=== PATIENT | male | born 1960 | race Caucasian/White ===

== ENCOUNTER 2018-10-14 14:36 | Day surgery (SDC) | payer OTHER ==
[~2018-10-14 14:36] MED LIST: CEFAZOLIN 2 GM/50 ML (PMX) 50 ML IVPB; DESFLURANE 15 MIN
[2018-10-14] MEDS ORDERED: LACTATED RINGER'S 1,000 ML IV ×2 (16:30)
[2018-10-14] MEDS ORDERED: BUPIVACAINE 0.5% (SDV) 30 ML INJ (16:44)
[2018-10-14] MEDS ORDERED: FENTAnyl 50 MCG/ML VIAL ×2 (16:44→17:33)
[2018-10-14] MEDS ORDERED: ONDANSETRON 4 MG INJ (16:44)
[2018-10-14] MEDS ORDERED: ROPIVACAINE 0.2% 20 ML VIAL (16:44)
[2018-10-14] MEDS ORDERED: PROPOFOL 20 ML (16:44)
[2018-10-14] MEDS ORDERED: MIDAZOLAM 1 MG/ML 2 ML INJ (16:44)
[2018-10-14] MEDS ORDERED: METOCLOPRAMIDE 10 MG INJ (16:45)
[2018-10-14] MEDS ORDERED: OXYCODONE/ACETAMINOPHEN (5/325) TAB PO ×2 (17:00)
[2018-10-14] MEDS ORDERED: MEPERIDINE 25 MG INJ IV (17:00)
[2018-10-14] MEDS ORDERED: HYDROmorphONE 1 MG/5 ML IV SYRINGE IV ×3 (17:00)
[2018-10-14] MEDS ORDERED: DIPHENHYDRAMINE 50 MG INJ IV (17:00)
[2018-10-14] MEDS ORDERED: hydrALAzine 20 MG INJ IV (17:00)
[2018-10-14] MEDS ORDERED: ONDANSETRON 4 MG INJ IV (17:00)
[2018-10-14] MEDS ORDERED: LABETALOL HCL 20MG INJ IV (17:00)
[2018-10-14] MEDS ORDERED: FENTAnyl 50 MCG/ML VIAL IV ×3 (17:00)
[2018-10-14] MEDS ORDERED: CEFAZOLIN 1 GM INJ (17:04)
[2018-10-14] MEDS ORDERED: EPHEDrine 25 MG/5 ML SYG (17:33)
[2018-10-14] MEDS ORDERED: KETOROLAC 30 MG INJ (17:34)
== END 2018-10-14 19:35 | disposition home or self-care (01) ==
LOC: SDS 14:36
DX: M72.0 Palmar fascial fibromatosis [Dupuytren] (principal); G56.01 Carpal tunnel syndrome, right upper limb; I10 Essential (primary) hypertension; E78.5 Hyperlipidemia, unspecified; E11.9 Type 2 diabetes mellitus without complications
CPT/HCPCS: 26123; 82962

== ENCOUNTER 2018-12-17 05:40 | Day surgery (SDC) | payer OTHER ==
[2018-12-17] MEDS ORDERED: LIDOCAINE 2% (SDV) 5 ML INJ (07:38)
[2018-12-17] MEDS ORDERED: PROPOFOL 40 ML (07:38)
[2018-12-17] MEDS ORDERED: PROPOFOL 20 ML ×2 (08:20)
[2018-12-17] MEDS ORDERED: ONDANSETRON 4 MG INJ IV (11:30)
== END 2018-12-17 12:10 | disposition home or self-care (01) ==
LOC: GIL 05:40
DX: R19.5 Other fecal abnormalities (principal); D12.4 Benign neoplasm of descending colon; K62.1 Rectal polyp; K29.50 Unspecified chronic gastritis without bleeding; D12.2 Benign neoplasm of ascending colon; I10 Essential (primary) hypertension; E11.9 Type 2 diabetes mellitus without complications
CPT/HCPCS: 43239; 82962; 88305